=== PATIENT | male | born 1955 | race Caucasian/White ===

== ENCOUNTER 2017-01-15 12:43 | Emergency (ER) | payer SELFPAY ==
[~2017-01-15] VITALS: Ht 154.9 cm; Wt 63.6 kg
[~2017-01-15 12:43] MED LIST: MOTRIN600 MG PO; SKELAXIN800 MG PO
[2017-01-15] MEDS ORDERED: BACTROBAN OINTM22 GM TP (15:56)
[2017-01-15] MEDS ORDERED: NAPROSYN500 MG PO (15:56)
[2017-01-15 16:15] VITALS: BP 130/80
== END 2017-01-15 16:30 | disposition home or self-care (01) ==
LOC: EME 12:43
DX: M54.9 Dorsalgia, unspecified (principal); R06.2 Wheezing; F17.200 Nicotine dependence, unspecified, uncomplicated; M41.9 Scoliosis, unspecified
CPT/HCPCS: 71020; 94640; 99281; 99284

== ENCOUNTER 2017-02-27 15:31 | Inpatient (IN) | payer OTHER ==
[~2017-02-27] VITALS: Ht 177.8 cm; Wt 51.9 kg
[~2017-02-27 15:31] MED LIST changes: +BACTROBAN OINTM22 GM TP; +NAPROSYN500 MG PO
[2017-02-27 17:32] LABS: HEMATOCRIT 25.6 % (38.0-50.0); MCH 27.6 PG (29.0-34.0); MCHC 31.6 G/DL (30.0-36.0); MCV 87.1 FL (86-99); MEAN PLAT.VOLUME 7.9 uM^3 (9.0-12.4); PLATELET COUNT 440 K/uL (156-360); RBC DIS.WIDTH-CV 14.5 % (11.8-14.6); RBC DIS.WIDTH-SD 46.2 % (39-53); RED BLOOD COUNT 2.94 M/uL (4.00-5.50); WHITE BLOOD COUNT 13.9 K/uL (4.1-10.2)
[2017-02-27 17:55] LABS: CHLORIDE 104 mEq/L (99-109); POTASSIUM 4.3 mEq/L (3.7-5.4); SODIUM 137 mEq/L (136-147)
[2017-02-27 17:57] LABS: GLUCOSE 96 mg/dL (70-99)
[2017-02-27 17:59] LABS: ANION GAP 10 MEQ/L (2-14); TOTAL BILIRUBIN 0.1 mg/dL (0.0-1.0)
[2017-02-27 18:01] LABS: ALKALINE PHOSPHATASE 81 IU/L (3-129); GFR ESTIMATE (CALCULATED) > 59 mL/min/
[2017-02-27 18:02] LABS: UREA NITROGEN (BUN) 22 mg/dL (9-23)
[2017-02-27 18:40] LABS: SAMPLE HEMOLYSIS CHECK 0; SAMPLE ICTERIC CHECK 0; SAMPLE LIPEMIA CHECK 0
[2017-02-27 18:56] LABS: ERTH.SED.RATE 54 MM/HR (0-20)
[2017-02-27 19:15] LABS: C-REACTIVE PROTEIN 88.9 MG/L (0-10)
[2017-02-27] MEDS ORDERED: ECOTRIN325 MG PO (19:27)
[2017-02-27] MEDS ORDERED: TYLENOL REGULA325 MG PO (19:28)
[2017-02-27] MEDS ORDERED: ADVIL,NUPRIN,M200 MG PO (19:28)
[2017-02-27 23:54] VITALS: BP 132/85
[2017-02-28 01:04] LABS: LACTATE DEHYDROGENASE 293 IU/L (20-246)
[2017-02-28 01:18] LABS: CREATINE KINASE 30 IU/L (1-294); IRON 25 MCG/DL (35-150)
[2017-02-28 03:24] VITALS: BP 122/68
[2017-02-28 03:46] LABS: ADD MIUA? YES; BILIRUBIN NEGATIVE; BLOOD MODERATE; COLOR STRAW ((YELLOW)); GLUCOSE (STRIP) NEGATIVE; KETONES NEGATIVE; LEUKOCYTES NEGATIVE; NITRITE NEGATIVE; PROTEIN (STRIP) NEGATIVE; SPECIFIC GRAVITY 1.027 (1.000-1.030); UROBILINOGEN 0.2 MG/DL (0.2-1.0)
[2017-02-28 03:51] LABS: BACTERIA NONE SEEN /HPF; EPITHELIAL CELLS NONE SEEN /HPF; MUCUS NONE SEEN /LPF; RED BLOOD CELLS 20-30 /HPF (0-5); UCUL ADDED? NO; WHITE BLOOD CELLS 0-5 /HPF (0-5)
[2017-02-28 05:56] LABS: HEMATOCRIT 25.5 % (38.0-50.0); MCH 27.4 PG (29.0-34.0); MCV 88.5 FL (86-99); PLATELET COUNT 438 K/uL (156-360); RBC DIS.WIDTH-CV 14.4 % (11.8-14.6); RBC DIS.WIDTH-SD 46.3 % (39-53); RED BLOOD COUNT 2.88 M/uL (4.00-5.50); WHITE BLOOD COUNT 13.6 K/uL (4.1-10.2)
[2017-02-28 06:14] LABS: ANION GAP 8 MEQ/L (2-14); CHLORIDE 102 MEQ/L (99-109); GFR ESTIMATE (CALCULATED) > 59 mL/min/; GLUCOSE 105 mg/dL (70-99); POTASSIUM 4.1 MEQ/L (3.7-5.4); SAMPLE HEMOLYSIS CHECK 0; SAMPLE ICTERIC CHECK 0; SAMPLE LIPEMIA CHECK 0; SODIUM 136 MEQ/L (136-147); UREA NITROGEN (BUN) 16 mg/dL (9-23)
[2017-02-28 07:36] VITALS: BP 129/81
[2017-02-28 10:54] LABS: INTER. NORMALIZED RATIO 1.2; PROTHROMBIN TIME 12.7 SEC (10.2-12.9)
[2017-02-28 10:57] LABS: PTT 29.5 SEC (25-37)
[2017-02-28 11:14] VITALS: BP 137/87
[2017-02-28 15:29] VITALS: BP 120/81
[2017-02-28 20:00] VITALS: BP 120/79
[2017-02-28 20:38] LABS: INTERNAL CONTROL VALID? YES
[2017-03-01] VITALS (7 sets, daily range): BP systolic 111–126; BP diastolic 65–100
[2017-03-01 05:43] LABS: EOSINOPHIL (%) 1.1 % (0-5); EOSINOPHIL COUNT 0.1 K/uL (0-0.3); HEMATOCRIT 24.5 % (38.0-50.0); IMMATURE GRANULOCYTE (%) 1.1 % (0.0-0.7); IMMATURE GRANULOCYTE COUNT 0.1 K/uL; LYMPHOCYTE COUNT 1.8 K/uL (1.0-2.8); MCH 27.1 PG (29.0-34.0); MCHC 30.6 G/DL (30.0-36.0); MCV 88.4 FL (86-99); MEAN PLAT.VOLUME 7.8 uM^3 (9.0-12.4); MONOCYTE (%) 8.3 % (3-12); MONOCYTE COUNT 0.9 K/uL (0-0.8); NEUTROPHIL (%) 72.7 % (45-76); PLATELET COUNT 394 K/uL (156-360); RBC DIS.WIDTH-CV 14.6 % (11.8-14.6); RBC DIS.WIDTH-SD 47.3 % (39-53); RED BLOOD COUNT 2.77 M/uL (4.00-5.50)
[2017-03-01 06:07] LABS: ANION GAP 9 MEQ/L (2-14); CHLORIDE 105 MEQ/L (99-109); GFR ESTIMATE (CALCULATED) > 59 mL/min/; GLUCOSE 94 mg/dL (70-99); POTASSIUM 4.4 MEQ/L (3.7-5.4); SAMPLE HEMOLYSIS CHECK 0; SAMPLE ICTERIC CHECK 0; SAMPLE LIPEMIA CHECK 0; SODIUM 138 MEQ/L (136-147); UREA NITROGEN (BUN) 19 mg/dL (9-23)
[2017-03-01 10:43] LABS: HIV INDEX 0.11; HIV-1/2 AB/AG COMBO Nonreactive
[2017-03-02 04:00] VITALS: BP 114/81
[2017-03-02 05:49] LABS: EOSINOPHIL (%) 1.6 % (0-5); EOSINOPHIL COUNT 0.2 K/uL (0-0.3); HEMATOCRIT 24.7 % (38.0-50.0); IMMATURE GRANULOCYTE (%) 1.9 % (0.0-0.7); IMMATURE GRANULOCYTE COUNT 0.2 K/uL; INSTRUMENT ABS NEUTROPHIL CT 8.7 K/uL; LYMPHOCYTE COUNT 2.2 K/uL (1.0-2.8); MCH 28.1 PG (29.0-34.0); MCHC 31.2 G/DL (30.0-36.0); MCV 90.1 FL (86-99); MEAN PLAT.VOLUME 8.1 uM^3 (9.0-12.4); MONOCYTE (%) 8.2 % (3-12); NEUTROPHIL (%) 70.3 % (45-76); NEUTROPHIL COUNT 8.7 K/uL (1.8-6.4); PLATELET COUNT 410 K/uL (156-360); RBC DIS.WIDTH-CV 14.7 % (11.8-14.6); RBC DIS.WIDTH-SD 47.8 % (39-53); RED BLOOD COUNT 2.74 M/uL (4.00-5.50); WHITE BLOOD COUNT 12.4 K/uL (4.1-10.2)
[2017-03-02 07:57] VITALS: BP 118/82
[2017-03-02 16:19] VITALS: BP 124/81
[2017-03-03 00:02] VITALS: BP 113/66
[2017-03-03 06:00] LABS: HEMATOCRIT 25.6 % (38.0-50.0); MCH 28.6 PG (29.0-34.0); MCHC 31.6 G/DL (30.0-36.0); MCV 90.5 FL (86-99); MEAN PLAT.VOLUME 8.2 uM^3 (9.0-12.4); PLATELET COUNT 472 K/uL (156-360); RBC DIS.WIDTH-CV 15.1 % (11.8-14.6); RBC DIS.WIDTH-SD 48.5 % (39-53); RED BLOOD COUNT 2.83 M/uL (4.00-5.50); WHITE BLOOD COUNT 15.5 K/uL (4.1-10.2)
[2017-03-03 08:17] VITALS: BP 130/76
[2017-03-03 16:11] VITALS: BP 128/74
[2017-03-03 23:24] VITALS: BP 131/83
[2017-03-04 07:00] VITALS: BP 122/83
[2017-03-04 09:32] LABS: HEMATOCRIT 31.8 % (38.0-50.0); MCH 27.1 PG (29.0-34.0); MCHC 29.9 G/DL (30.0-36.0); MCV 90.9 FL (86-99); PLATELET COUNT 577 K/uL (156-360); RBC DIS.WIDTH-CV 16.4 % (11.8-14.6); RBC DIS.WIDTH-SD 49.3 % (39-53); WHITE BLOOD COUNT 16.9 K/uL (4.1-10.2)
[2017-03-04 10:15] LABS: TREPONEMA ANTIBODY NEGATIVE (NEGATIVE)
[2017-03-04 15:45] VITALS: BP 107/70
== END 2017-03-04 20:21 | disposition short-term general hospital (02) | DRG 540 ==
LOC: EME 15:31 → EDOF 21:38 → 5SOUTH 21:38 → ENRESERV 21:51 → 5SOUTH 22:49
PROVIDERS: Hospitalist; Internal Medicine; Nurse Practitioner Family; Physician Assistant Medical; Specialist; Student in an Organized Health Care Education/Training Program
DX: M46.22 Osteomyelitis of vertebra, cervical region (principal); G95.9 Disease of spinal cord, unspecified; M48.02 Spinal stenosis, cervical region; E46 Unspecified protein-calorie malnutrition; R64 Cachexia; M46.49 Discitis, unspecified, multiple sites in spine; M46.24 Osteomyelitis of vertebra, thoracic region; M48.04 Spinal stenosis, thoracic region; Z68.1 Body mass index [BMI] 19.9 or less, adult; J44.9 Chronic obstructive pulmonary disease, unspecified; M43.12 Spondylolisthesis, cervical region; F17.210 Nicotine dependence, cigarettes, uncomplicated; F14.90 Cocaine use, unspecified, uncomplicated; R78.81 Bacteremia; K05.10 Chronic gingivitis, plaque induced; J98.11 Atelectasis; M40.209 Unspecified kyphosis, site unspecified; D63.8 Anemia in other chronic diseases classified elsewhere; D75.89 Other specified diseases of blood and blood-forming organs; E61.1 Iron deficiency; G89.29 Other chronic pain; I51.7 Cardiomegaly; Z86.14 Personal history of Methicillin resistant Staphylococcus aureus infection; Z80.3 Family history of malignant neoplasm of breast; Z82.49 Family history of ischemic heart disease and other diseases of the circulatory system
CPT/HCPCS: 70450; 71260; 72125; 73721; 74177; 77012; 80048; 80053; 81003; 82272; 82550; 82550 91; 83540; 83615; 85025; 85027; 85610; 85651; 85730; 86140; 86703; 86780; 86850; 86900; 86901; 87040; 87070; 87075; 87077; 87186; 87205; 87801; 90686; 93306; 99281; 99285; J0295; J0696; J1650; J3010; J3370; J7050; Q0138